=== PATIENT | female | born 1955 | race Caucasian/White ===

== ENCOUNTER 2016-12-18 07:00 | Emergency (ER) | payer OTHER ==
[~2016-12-18] VITALS: Ht 154.9 cm; Wt 94.2 kg
[2016-12-18 07:04] VITALS: BP 170/93; PULSE 97; RESP 16; TEMP 98; O2SAT 95
[2016-12-18] MEDS ORDERED: ANAS1 PO (07:18)
[2016-12-18] MEDS ORDERED: HYDR-3133 PO (07:30)
[2016-12-18] MEDS ORDERED: PRED20 PO (07:30)
--- NOTE | 2016-12-18 07:31 | PD ---
HPI Chief Complaint: Skin Problem Time Seen by Provider: 07:14 Travel History International Travel<30 days: No Contact w/Intl Traveler<30days: No Traveled to known affect area: No History of Present Illness HPI This is a 61 year old female who 10 days ago had a thoracentesis for a pleural effusion who developed a rash to an adhesive that was used on her back, constant , moderate severity, itchy, spreading despite using topical hydrocortisone cream. She denies any wheezing or difficulty breathing. She does have a follow -up appointment with her oncologist in one week. She has a history of being very sensitive to adhesives in the past. PFSH Past Medical History Cancer: Yes (BREAST) Diminished Hearing: No Tetanus Vaccination: Unknown ?: Not Past Surgical History Cholecystectomy: Yes Gynecologic Surgery: Yes (double mastectomy) Tonsillectomy: Yes Other Surgery: Yes (nasal reconstruction) Social History Alcohol Use: No Tobacco Use: No Substance Use: No Allergies-Medications (Allergen,Severity, Reaction): Coded Allergies: No Known Allergies (Unverified , 12/18/16) Reported Meds & Prescriptions Reported Meds & Active Scripts Active Reported Arimidex (Anastrozole) 1 Mg Tab 1 Mg PO DAILY Review of Systems Except as stated in HPI: all other systems reviewed are Neg Physical Exam Narrative GENERAL:Well appearing, no acute distress SKIN: Confluent urticarial rash along the mid thoracic area, blanching HEAD: Atraumatic. Normocephalic. EYES: Pupils equal and round. No injection or drainage. ENT: Moist mucous membranes NECK: Trachea midline. CARDIOVASCULAR: Regular rate and rhythm. No murmur appreciated. RESPIRATORY: Rales in the left lung base GASTROINTESTINAL: Abdomen soft, non-tender, nondistended. MUSCULOSKELETAL: No obvious deformities. NEUROLOGICAL: Awake and alert. No obvious cranial nerve deficits. Moving all extremities. PSYCHIATRIC: Appropriate mood and affect; insight and judgment normal. Data Data Last Documented VS Vital Signs Date Time Temp Pulse Resp B/P Pulse Ox O2 Delivery O2 Flow Rate FiO2 12/18/16 07:04 98.0 97 16 170/93 95 MDM Medical Decision Making Medical Screen Exam Complete: Yes Emergency Medical Condition: Yes Interpretation(s) Afebrile, mild tachycardia, hypertensive Differential Diagnosis Contact dermatitis, acute allergic reaction, anaphylaxis Narrative Course This is a 61-year-old female who presents to the emergency department with a rash along her mid thoracic back that's been present ever since she had a thoracentesis. She has a history of allergy to adhesives. She is otherwise well-appearing and I think appropriate for outpatient management. Patient will be discharged on prednisone and Atarax. Diagnosis Primary Impression: Contact dermatitis Qualified Code: L23.1 - Allergic contact dermatitis due to adhesives Patient Instructions: General Instructions Departure Forms: Tests/Procedures Additional Instructions: If you develop swelling of the throat or coughing a lot, wheezing or trouble breathing, throwing up or having diarrhea, feeling dizzy or passing out, or spreading of your rash return to the emergency room immediately as you may be having a life threatening allergic reaction. Complete your course of steroids and take hydroxyzine every 6hours for the next 48 hours and then as needed for itching or other symptoms. Med/Other Pt SpecificInfo: Prescription(s) given Scripts Prednisone 20 Mg Tab40 Mg PO DIRECTED 5 Days Ref 0 Prov:Aditi Melendrez MD 12/18/16 Hydroxyzine HCl 25 Mg Tab25 Mg PO QID PRN (ITCHING) #15 TAB Ref 0 Prov:Aditi Melendrez MD 12/18/16 Disposition: 01 DISCHARGE HOME Condition: Stable Aditi Melendrez MD Dec 18, 2016 07:30
== END 2016-12-18 07:41 | disposition home or self-care (01) ==
LOC: EDBD → PHED 07:00
DX: L23.1 Allergic contact dermatitis due to adhesives (principal); Z85.3 Personal history of malignant neoplasm of breast
CPT/HCPCS: 99282